=== PATIENT | male | born 1940 | race Caucasian/White ===

== ENCOUNTER → 2017-05-09 | Outpatient (CLI) | payer OTHER ==
[~2017-05-09] MED LIST: ANUSOL; ASPIRIN PO; ASPIRIN81 M2 PO; BUSPIRONE HCL15 MG PO; CELEBREX PO; CERTAGEN PO; DYAZIDE 37.5/251 CAP PO; FISH OIL 1,0001 EAC3 PO; GLUCOSAMINE PO; GLUCOSAMINE500 M1 PO; LIPITOR PO; LIPITOR40 MG PO; LISINOPRIL PO; LOPRESSOR PO; MOBIC15 MG PO; MONOCAPS TABLE1 EACH PO; PANTOPRAZOLE SO40 MG PO; PRINIVIL40 MG PO; SYMBICORT INH; TOPROL XL 50 MG50 MG PO; TOPROL XL PO; TRIAMTERENE-HC1 EACH PO; ZEGERID40 MG/PKT PO
--- NOTE | ~2017-05-09 | CR7 ---
[facility] A Service of [facility] & [facility] RADIOLOGY TEXT RESULTS PATIENT: NETTE MCCARTNEY LOCATION: [facility] MARY BLACK CAMPUST : 42 UNIT #: [id number] AGE: [address]: Binu Avalos MD SEX: M ORDER DR: [id number] [facility] [address] [place], [place] [address] [id number] O MR#: [id number] Acc #: [id number] NAME: NETTE MCCARTNEY : 1940 SEX: M STUDY DATE/TIME: 05/09/2017 7:34 UNIT: [facility] MARY BLACK [facility] ROOM: STUDY DESCRIPTION: CR Abdomen Single AP View Attending Physician: Binu Avalos M.D. Referring Physician: Binu Avalos M.D. Ordering Physician: Binu Avalos M.D. Primary Care Physician: Lydia Ahmadi M.D. MEDICAL IMAGING REPORT This report is preliminary unless electronic signature is present EXAM AP abdomen. HISTORY Urinary retention today. FINDINGS KUB demonstrates normal bowel gas pattern. Small amount of stool in nondistended colon. Multiple surgical clips in the pelvis. Mild degenerative changes in the lumbar spine. No opaque urinary calculi are identified. IMPRESSION 1. Normal bowel gas pattern. 2. Surgical clips in the pelvis. 3. No opaque urinary calculi are identified. Dictated by... Billy Peterson M.D. THIS IS AN ELECTRONICALLY VERIFIED REPORT Billy Peterson M.D. at 05/09/2017 11:29 PM EMELI/giuliano TD: 05/09/2017 18:22 JOB #: [id number] MEDICAL IMAGING REPORT Page 1 of 1 COPY
--- NOTE | ~2017-05-09 | CT4 ---
[facility] A Service of [facility] & [facility] RADIOLOGY TEXT RESULTS PATIENT: NETTE MCCARTNEY LOCATION: [facility] : 42 UNIT #: [id number] AGE: [address]: Binu Avalos MD SEX: M ORDER DR: [id number] [facility] [address] [place], [place] [address] [id number] O MR#: [id number] Acc #: [id number] NAME: NETTE MCCARTNEY : 1940 SEX: M STUDY DATE/TIME: 05/09/2017 8:43 UNIT: [facility] ROOM: STUDY DESCRIPTION: CT Abd and Pelv Wo Cont Attending Physician: Binu Avalos M.D. Referring Physician: Binu Avalos M.D. Ordering Physician: Binu Avalos M.D. Primary Care Physician: Lydia Ahmadi M.D. MEDICAL IMAGING REPORT This report is preliminary unless electronic signature is present EXAM Abdomen and pelvis CT without contrast HISTORY Urinary retention over the past 5-6 weeks. TECHNIQUE Axial images were obtained without contrast. This CT exam was performed with one or more of the following radiation dose reduction techniques: automatic exposure control, adjustment of mA and/or kV according to patient size, and iterative reconstruction. FINDINGS There is pleural thickening with volume loss and mild atelectasis at the right lung base. Emphysematous changes are seen at both bases. The liver, spleen and pancreas are normal in size. There is no evidence of hydronephrosis. Low-density renal lesions are seen bilaterally consistent with simple cysts. The ureters are nondilated. No kidney stones are seen. The bladder has a smooth contour. There is no evidence of retroperitoneal adenopathy or ascites. Diverticulosis is seen throughout the colon. Postoperative changes are noted in the pelvis with vascular clips on both sides. There is a small left inguinal hernia that contains fat. There is no evidence of pelvic adenopathy, mass or fluid collection. IMPRESSION Diverticulosis. Chronic pleural thickening with scarring and volume loss at the right lung base. No acute changes in the abdomen or pelvis. No evidence of hydronephrosis or stone disease. STS. [facility] A Service of [facility] & [facility] RADIOLOGY TEXT RESULTS PATIENT: NETTE MCCARTNEY LOCATION: [facility] : 42 UNIT #: [id number] AGE: [address]: Binu Avalos MD SEX: M ORDER DR: Dictated by... Jeremy Watkins M.D. THIS IS AN ELECTRONICALLY VERIFIED REPORT Jeremy Watkins M.D. at 05/11/2017 9:58 AM MARIJA/jameson TD: 05/10/2017 18:32 JOB #: [id number] MEDICAL IMAGING REPORT Page 1 of 1 COPY
--- NOTE | ~2017-05-09 | NM8 ---
[facility] A Service of [facility] RADIOLOGY TEXT RESULTS PATIENT: NETTE MCCARTNEY LOCATION: [facility] : 42 UNIT #: [id number] AGE: [address]: Binu Avalos MD SEX: M ORDER DR: [id number] [address] [id number] [facility] [place], [place] [address] [id number] O MR#: [id number] Acc #: [id number] NAME: NETTE MCCARTNEY : 1940 SEX: M STUDY DATE/TIME: 05/09/2017 10:40 UNIT: [facility] ROOM: STUDY DESCRIPTION: NM Bone or Joint Whole Body Attending Physician: Binu Avalos M.D. Referring Physician: Binu Avalos M.D. Ordering Physician: Binu Avalos M.D. Primary Care Physician: Lydia Ahmaid M.D. MEDICAL IMAGING REPORT This report is preliminary unless electronic signature is present EXAM Whole body bone scan HISTORY A 76-year-old male diagnosed with prostate cancer in 2001, and lung cancer in 2010 with cancer right lung. Surveillance for recurrent disease. The patient complains of diffuse pain, bilateral knee pain. COMPARISON STUDIES CT abdomen and pelvis, 05/09/17 FINDINGS Whole body and selected spot images were performed of the axial and appendicular skeleton following the intravenous administration of 29.2 mCi of Tc-99m MDP. The examination demonstrate degenerative uptake within both knees primarily within the medial compartment of the left knee, and also within the patellofemoral compartment of the right knee. Uptake within the right ankle in the region of the ankle joint or tibial plafond may be posttraumatic or degenerative in nature. No abnormal uptake identified to suggest osseous metastatic disease. Bilateral renal activity, normal bladder activity noted. IMPRESSION 1. No bone scan findings to suggest osseous metastatic disease. 2. Degenerative uptake both knee medial compartment left knee and patellofemoral compartment right knee. 3. Increased uptake right ankle may be posttraumatic or degenerative in nature. [facility] [place] [facility] TEXT RESULTS PATIENT: NETTE MCCARTNEY LOCATION: [facility] : 42 UNIT #: [id number] AGE: [address]: Binu Avalos MD SEX: M ORDER DR: Dictated by... Susy Chaudhry M.D. THIS IS AN ELECTRONICALLY VERIFIED REPORT Susy Chaudhry M.D. at 05/13/2017 9:33 AM JULIANO/[email or web address] TD: 05/10/2017 00:34 JOB #: [id number] MEDICAL IMAGING REPORT Page 1 of 1 COPY
== END | disposition home or self-care (01) ==
LOC: CCAT 07:03 → CNUC 08:00
DX: R33.9 Retention of urine, unspecified (principal); K57.30 Diverticulosis of large intestine without perforation or abscess without bleeding; J92.9 Pleural plaque without asbestos; J98.4 Other disorders of lung; Z98.890 Other specified postprocedural states
CPT/HCPCS: 74000; 74176; 78306; A9503